=== PATIENT | male | born 1950 | race Caucasian/White ===

== ENCOUNTER 2021-02-17 02:23 | Observation (INO) | payer MEDICARE ==
[2021-02-17] MEDS ORDERED: Zolpidem Tartrate 5 MG TAB PO PRN (03:08)
[2021-02-17] MEDS ORDERED: Calcium Carbonate 500 MG ChewTAB PO PRN (03:08)
[2021-02-17] MEDS ORDERED: Senokot S 8.6-50 MG TAB PO PRN (03:08)
[2021-02-17] MEDS ORDERED: Ventolin HFA Inhaler 60 PUFF INHALER INH PRN (03:10)
[2021-02-17] MEDS ORDERED: Sodium Chloride 0.9% 500 ML IV SCH (03:15)
[2021-02-17] MEDS ORDERED: Digoxin 0.125 MG TAB PO SCH (03:15)
[2021-02-17 03:27] VITALS: BMI 31.5
[2021-02-17] MEDS ORDERED: Acyclovir 800 mg Tablet PO SCH (09:00)
[2021-02-17] MEDS ORDERED: Torsemide 20 MG TAB PO SCH (09:00)
[2021-02-17] MEDS ORDERED: SALSALATE 750 MG PO SCH (09:00)
[2021-02-17] MEDS ORDERED: EPLERENONE 25 MG PO SCH (09:00)
[2021-02-17] MEDS: Famotidine 20 MG TAB PO SCH (10:39)
[2021-02-17] MEDS: Enoxaparin Sodium 40 MG/0.4 ML SYRINGE SC SCH (10:53)
[2021-02-17] MEDS: Metoprolol Tartrate 25 MG TAB PO SCH ×2 (10:53→21:28)
[2021-02-17] MEDS: Magnesium Oxide 400 MG TAB PO SCH (10:54)
[2021-02-17] MEDS: Citalopram 20 MG TAB PO SCH (10:55)
[2021-02-17] MEDS: Multivitamin W/ Minerals 1 TAB PO SCH (10:55)
[2021-02-17] MEDS: Potassium Chloride 10 MEQ TAB PO SCH (10:55)
[2021-02-17] MEDS: Donepezil HCl 5 MG TAB PO SCH (10:55)
[2021-02-17] MEDS: Allopurinol 100 MG TAB PO SCH ×2 (10:55→21:28)
[2021-02-17] MEDS ORDERED: Acyclovir 400 mg Tablet PO SCH (11:00)
[2021-02-17 13:12] LABS: SARS-CoV-2 PCR by NAA Not Detected (NotDetected)
[2021-02-17] MEDS: Mometasone 100 MCG/Formoterol 5 MCG 120 PUFF INHALER INH SCH ×2 (13:20→19:44)
[2021-02-17] MEDS: Acetaminophen 325 MG TAB PO PRN (17:09)
[2021-02-17] MEDS ORDERED: hydrOXYzine 25 MG TAB PO SCH (21:00)
[2021-02-17] MEDS ORDERED: clonazePAM 1 MG TAB PO SCH (21:00)
[2021-02-17] MEDS ORDERED: Atorvastatin Calcium 10 MG TAB PO SCH (21:00)
[2021-02-18 06:38] LABS: #Basophils 0.1 10x3/uL (0.0-0.2); #Eosinphils 0.5 10x3/uL (0.0-0.5); #Monocytes 0.5 10x3/uL (0.0-1.1); %Basophils 1.2 % (0.0-2.0); %Eosinophils 11.8 % (0.0-6.0); %Lymphocytes 26.5 % (18.0-47.0); %Neutrophils 49.3 % (40.0-75.0); Hemoglobin 15.8 g/dL (13.5-17.5); Mean Corpuscular HGB CONC 33.3 g/dL (32.0-36.0); Mean Corpuscular Hemoglobin 29.5 pg (27.0-33.0); Mean Corpuscular Volume 88.6 fl (81.2-95.1); Mean Platelet Volume 9.9 fl (7.4-10.4); Platelet Count 156 10x3/uL (150-450); RBC Distribution Width 14.6 % (11.5-14.5); Red Blood Cell (RBC) Count 5.35 10x6/uL (4.32-5.72); White Blood Cell (WBC) Count 4.1 10x3/uL (3.5-10.5)
[2021-02-18 06:42] LABS: ALT (SGPT) 13 U/L (8-55); AST (SGOT) 17 U/L (5-34); Albumin 3.2 g/dL (3.4-4.8); Alkaline Phosphatase 47 U/L (40-110); Anion Gap 10 mmol/L (10-20); BUN (Urea Nitrogen) 22 mg/dL (8.4-25.7); Bilirubin, Total 0.5 mg/dL (0.2-1.2); Calc. Creatinine Clearance 87 mL/min (70-130); Calcium 8.2 mg/dL (7.8-10.44); Carbon Dioxide 26 mmol/L (23-31); Chloride 109 mmol/L (98-107); Globulin 2.2 g/dL (2.4-3.5); Glucose 83 mg/dL (80-115); Magnesium 2.1 mg/dL (1.6-2.6); Potassium 3.9 mmol/L (3.5-5.1); Protein, Total 5.4 g/dL (5.8-8.1); Sodium 141 mmol/L (136-145)
[2021-02-18] MEDS: Metoprolol Tartrate 25 MG TAB PO SCH (08:25)
[2021-02-18] MEDS: Multivitamin W/ Minerals 1 TAB PO SCH (08:25)
[2021-02-18] MEDS: Allopurinol 100 MG TAB PO SCH (08:25)
[2021-02-18] MEDS: Donepezil HCl 5 MG TAB PO SCH (08:25)
[2021-02-18] MEDS: Magnesium Oxide 400 MG TAB PO SCH (08:25)
[2021-02-18] MEDS: Enoxaparin Sodium 40 MG/0.4 ML SYRINGE SC SCH (08:25)
[2021-02-18] MEDS: Citalopram 20 MG TAB PO SCH (08:25)
[2021-02-18] MEDS: Famotidine 20 MG TAB PO SCH (08:25)
[2021-02-18] MEDS: Potassium Chloride 10 MEQ TAB PO SCH (08:25)
[2021-02-18] MEDS: Acetaminophen 325 MG TAB PO PRN (08:35)
[2021-02-18] MEDS ORDERED: Acyclovir 400 mg Tablet PO SCH (09:00)
[2021-02-18 11:53] VITALS: BP 138/93; TEMP 96.9
[2021-02-18] MEDS ORDERED: Mometasone/Formoterol 60 PUFF AER INH SCH (18:30)
== END 2021-02-18 12:46 | disposition home or self-care (01) ==
LOC: CSHTELE 02:23
PROVIDERS: ADMIT Student in an Organized Health Care Education/Training Program; ATTEND Internal Medicine
DX: Z45.02 Encounter for adjustment and management of automatic implantable cardiac defibrillator (principal); I49.01 Ventricular fibrillation; I11.0 Hypertensive heart disease with heart failure; I50.22 Chronic systolic (congestive) heart failure; F03.90 Unspecified dementia, unspecified severity, without behavioral disturbance, psychotic disturbance, mood disturbance, and anxiety; F32.9 Major depressive disorder, single episode, unspecified; M10.9 Gout, unspecified; E78.5 Hyperlipidemia, unspecified; Z79.899 Other long term (current) drug therapy; Z20.822 Contact with and (suspected) exposure to COVID-19
CPT/HCPCS: 80053; 83735; 85025; 93306; 94640; 94664; 96372 ×2; G0378 ×2; U0003; U0005; 36415; 87635; J1650